=== PATIENT | male | born 1965 | race American Indian/Alaskan Native ===

== ENCOUNTER 2017-03-02 02:56 | Observation (INO) | payer OTHER ==
[2017-03-02 02:56] VITALS: BMI 26.9
[2017-03-02] MEDS ORDERED: Labetalol 25mg/5ml Syringe IVP STA (03:22)
--- NOTE | 2017-03-02 03:29 | C.PDOC ---
History Of Present Illness 52 year old male presents to the ED for evaluation of new onset of chest pain which began at around 0100 today. Patient describes symptoms as nonexertional and midsternal. Patient states symptoms have now improved but are persistent. Patient also reports shortness of breath. Denies any other associated symptoms. Patient reports he has been noncompliant with his blood pressure medications since 09/2016 stating, " I ran out." NEW ONSET CP SINCE 0100. NONEXERTIONAL MIDSTERNAL NOW IMPROVED BUT PERSISTENT. + SOB. NO OTHER ASSOC SX. NONCOMPLIANT W BP MEDS SINCE 09/2016 "I RAN OUT" EXAM NEG Time Seen by Provider: 03/02/17 03:17 Chief Complaint (Nursing): Chest Pain History Per: Patient History/Exam Limitations: no limitations Onset/Duration Of Symptoms: Hrs, Sudden Onset, Persistent Current Symptoms Are (Timing): Better Quality: "Pain" Additional History Per: Patient Past Medical History Reviewed: Historical Data, Nursing Documentation, Vital Signs Vital Signs: Last Vital Signs Temp 97.8 F 03/02/17 03:08 Pulse 72 03/02/17 04:43 Resp 16 03/02/17 04:43 BP 146/85 03/02/17 04:43 Pulse Ox 95 03/02/17 05:02 - Medical History PMH: Arthritis, HTN, Osteoporosis Surgical History: No Surg Hx Family History: States: Unknown Family Hx - Social History Hx Tobacco Use: No Hx Alcohol Use: Yes Hx Substance Use: No - Immunization History Hx Tetanus Toxoid Vaccination: No Hx Influenza Vaccination: No Hx Pneumococcal Vaccination: No Review Of Systems Cardiovascular: Positive for: Chest Pain (midsternal ) Respiratory: Positive for: Shortness of Breath Physical Exam - Physical Exam Appears: Non-toxic, No Acute Distress Skin: Normal Color, Warm, Dry Head: Atraumatic, Normacephalic Eye(s): bilateral: Normal Inspection Oral Mucosa: Moist Neck: Supple Chest: Symmetrical, No Deformity, No Tenderness Cardiovascular: Rhythm Regular, No Murmur Respiratory: Normal Breath Sounds, No Rales, No Rhonchi, No Wheezing Extremity: Normal ROM, Capillary Refill (less than 2 seconds ) Neurological/Psych: Oriented x3, Normal Speech, Normal Cognition Gait: Steady ED Course And Treatment - Laboratory Results Result Diagrams: 03/02/17 03:37 03/02/17 03:37 ECG: Interpreted By Me ECG Rhythm: Sinus Rhythm ECG Interpretation: Normal Rate From EC O2 Sat by Pulse Oximetry: 95 (on RA) Pulse Ox Interpretation: Normal Progress Note: Labs, EKG, CXR ordered and reviewed. Aspirin PO, Nitroglycerin SL , Trandate IVP, and Tylenol PO administered. Progress - Re-Evaluation Re-evaluation Note: 03/02/17 04:59 CP RESOLVED. SBP 145 PENDING CALLBACK MED SEWER TAPPER 03/02/17 05:20 D/W DR BARAHONA MED SEWER TAPPER WILL ADMIT - Data Reviewed Data Reviewed: Lab, Diagnostic imaging, EKG, Old records - Continuity of Care Discussed patient case with:: On-call PMD-pt unassigned Disposition Counseled Patient/Family Regarding: Studies Performed, Diagnosis - Disposition Disposition: HOSPITALIZED Disposition Time: 05:01 Condition: STABLE Forms: [facility] (Lebanese) - POA Present On Arrival: None - Clinical Impression Clinical Impression: Chest pain, Uncontrolled hypertension - Scribe Statement The provider has reviewed the documentation as recorded by the Scribe (Pat Burroughs) Provider Attestation: All medical record entries made by the Scribe were at my direction and personally dictated by me. I have reviewed the chart and agree that the record accurately reflects my personal performance of the history, physical exam, medical decision making, and the department course for this patient. I have also personally directed, reviewed, and agree with the discharge instructions and disposition. Decision To Admit - Pt Status Changed To: Hospital Disposition Of: Observation - . Bed Request Type: Telemetry Admitting Physician: Juan Pablo Clements Patient Diagnosis: Chest pain, Uncontrolled hypertension
[2017-03-02 03:42] LABS: BASO % 0.3 % (0.0-2.0); EOS # 0.5 K/uL (0.0-0.7); EOS % 6.1 % (0.0-4.0); HEMATOCRIT 45.4 % (35.0-51.0); LYMPH # 1.7 K/uL (1.0-4.3); MEAN CELL VOLUME 78.9 fL (80.0-94.0); MEAN CORPUSCULAR HEMOGLOBIN 26.5 pg (27.0-31.0); MEAN CORPUSCULAR HGB CONC 33.5 g/dL (33.0-37.0); MEAN PLATELET VOLUME 8.5 fL (7.2-11.7); MONO # 0.9 K/uL (0.0-0.8); MONO % 10.2 % (0.0-10.0); RED CELL DISTRIBUTION WIDTH 15.5 % (11.5-14.5); WHITE BLOOD COUNT 8.8 K/uL (4.8-10.8)
[2017-03-02 03:47] LABS: CHLORIDE 102 mmol/L (98-107); POTASSIUM 3.9 mmol/L (3.6-5.2); SODIUM 137 mmol/L (132-148)
[2017-03-02 03:50] LABS: CARBON DIOXIDE 24 mmol/L (22-30); GFR AFRICAN-AMERICAN 60
[2017-03-02 03:51] LABS: BLOOD UREA NITROGEN 25 mg/dL (9-20); CALCIUM 9.1 mg/dl (8.6-10.4); GLUCOSE,RANDOM 103 mg/dL (75-110)
[2017-03-02] MEDS ORDERED: Labetalol 25mg/5ml Syringe ONE (04:03)
--- NOTE | 2017-03-02 08:02 | RAD ---
PROCEDURE: CHEST RADIOGRAPH, 1 VIEW HISTORY: chest pain COMPARISON: None available. FINDINGS: LUNGS: Mild venous congestion. Right hilar prominence. Mild patchy increased markings at the lung bases. PLEURA: No pneumothorax or pleural fluid seen. CARDIOVASCULAR: Normal. OSSEOUS STRUCTURES: No significant abnormalities. VISUALIZED UPPER ABDOMEN: Normal. OTHER FINDINGS: None. IMPRESSION: Mild venous congestion. Right hilar prominence. Mild patchy increased markings at the lung bases.
[2017-03-02] MEDS: Metoprolol Succinate 25 mg XL Tab PO SCH (10:05)
[2017-03-02] MEDS: Enoxaparin 40 mg Syringe SC SCH (10:05)
[2017-03-02 11:04] LABS: RBC URINE 1 /hpf (0-3); URINE BILIRUBIN NEGATIVE (NEGATIVE); URINE BLOOD NEGATIVE (NEGATIVE); URINE COLOR Straw (YELLOW); URINE GLUCOSE (UA) NORMAL (Normal); URINE KETONE NEGATIVE (NEGATIVE); URINE LEUKOCYTE ESTERASE NEG Leu/uL (Negative); URINE PROTEIN NEGATIVE (NEGATIVE); URINE UROBILINOGEN NORMAL mg/dL (0.2-1.0); WBC URINE 1 /hpf (0-5)
[2017-03-02 11:42] LABS: CHOLESTEROL 176 mg/dL (0-199)
--- NOTE | 2017-03-02 11:56 | CP.PCM.PN ---
Subjective - Date & Time of Evaluation Date of Evaluation: 03/02/17 Time of Evaluation: 11:30 - Subjective Subjective: H&P dictated #[id number] Objective - Vital Signs/Intake and Output Vital Signs (last 24 hours): Temp Pulse Resp BP Pulse Ox 97.9 F 61 20 134/78 97 03/02/17 07:00 03/02/17 07:00 03/02/17 07:00 03/02/17 10:05 03/02/17 07:00 - Medications Medications: Current Medications Aspirin (Aspirin) 325 mg PO DAILY [facility] Last Admin: 03/02/17 10:04 Dose: Not Given Enalapril Maleate (Vasotec) 10 mg PO DAILY [facility] Last Admin: 03/02/17 10:05 Dose: 10 mg Enoxaparin Sodium (Lovenox) 40 mg SC DAILY [facility] Last Admin: 03/02/17 10:05 Dose: 40 mg Hydrochlorothiazide (Hydrodiuril) 25 mg PO DAILY [facility] Last Admin: 03/02/17 10:04 Dose: 25 mg Metoprolol Succinate (Toprol Xl) 25 mg PO DAILY [facility] Last Admin: 03/02/17 10:05 Dose: 25 mg Nitroglycerin (Nitrostat Sl Tab) 0.4 mg SL Q5M PRN PRN Reason: CHEST PAIN Last Admin: 03/02/17 03:45 Dose: 0.4 mg Pneumococcal Polyvalent Vaccine (Pneumovax 23 Vaccine) 0.5 ml IM .ONCE ONE Stop: 03/04/17 10:01 - Labs Labs: 03/02/17 03:37 03/02/17 03:37
[2017-03-02 12:12] LABS: THYROID STIMULATING HORMONE 7.77 mIU/L (0.46-4.68)
--- NOTE | 2017-03-02 19:11 | HP ---
CHIEF COMPLAINT: Chest pain started at 1:30 a.m. HISTORY OF PRESENT ILLNESS: The patient is a 52-year-old male with past medical of hypertension, osteoarthritis, gout, noncompliance with his medications, ran out of his medication in 09/2016 and not taking any pill since then, has been following up with Dr. Campos, came into the ED with complaints of sudden onset of chest pain at 1:30 a.m. while he was resting. As per the patient, chest pain is in the retrosternal areas, pressure like pain, non-radiating, not associated with nausea or vomiting, felt slightly dizzy. Denies any diaphoresis. The pain was present until he came into the emergency room and felt better after he got the medication in the emergency room. He claims that it may have lasted for about 2 hours. When I examined he is feeling much better. Denies any headache or dizziness. Denies any chest pain, shortness of breath or wheezing. Denies any nausea, vomiting, abdominal pain, diarrhea or constipation. Denies any urinary complaints. Denies any leg pains or leg cramps. Denies any other neurologic symptoms. All other systems reviewed and was found to be negative. PAST MEDICAL HISTORY: As described, hypertension, osteoarthritis, and gout. PAST SURGICAL HISTORY: Denies any past surgical history. FAMILY HISTORY: Hypertension in the mother. PERSONAL HISTORY: He is , having 3 children, living with his , working as a local company hazmat driver. SOCIAL HISTORY: Denies smoking or drugs. Drinks alcohol socially. ALLERGIES: NO KNOWN DRUG ALLERGIES. HOME MEDICATIONS: Include enalapril and hydrochlorothiazide 10/25 daily, tramadol as needed, naproxen 500 mg p.o. b.i.d. REVIEW OF SYSTEMS: As described in history of present illness. All other systems reviewed and was found to be negative. PHYSICAL EXAMINATION: GENERAL: Middle-aged male, lying in bed, in no acute distress. VITAL SIGNS: Blood pressure 134/86, pulse 62, respirations 20, temperature 97.7 degrees Fahrenheit, O2 saturation 97% on room air. HEENT: Pupils equal round, reacting to light and accommodation. Extraocular muscles intact. No icterus, no pallor, no oral thrush, no pharyngeal congestion, no nasal congestion. NECK: Supple. No JVD. No thyromegaly. CHEST: Moving equally bilaterally on respirations. LUNGS: Bilateral vesicular breath sounds. No wheezing. No rhonchi. CARDIOVASCULAR: S1 and S2 present, regular. ABDOMEN: Soft and nontender. Bowel sounds present. No guarding. No rigidity. No rebound tenderness noted. CENTRAL NERVOUS SYSTEM: Alert, awake, oriented x3. No focal deficits noted. EXTREMITIES: No edema. Palpable peripheral pulses. LABORATORY DATA: Done from ED, WBC 8.8, hemoglobin 15.2, hematocrit 45.4, platelets 217. Sodium 137, potassium 3.9, chloride 102, bicarbonate 24, BUN 25, creatinine 1.5, glucose 103, calcium 9.1, cardiac enzymes x2 negative, triglycerides 248, cholesterol 176, LDL 122, HDL 31, TSH 7.77. UA negative, urine drug screen negative. Chest x-ray negative for any infiltrate. EKG shows normal sinus rhythm at 81 beats per minute, poor R-wave progression. ASSESSMENT: Middle-aged male with history of hypertension, arthritis, gout, noncompliant with his medication, came in with elevated blood pressure of 173/108 and retrosternal chest pain. The patient is being admitted for further evaluation. 1. Chest pain in a patient with multiple risk factors, rule out acute coronary syndrome, rule out coronary artery disease. 2. Uncontrolled hypertension. 3. Noncompliance. 4. Hypertriglyceridemia. 5. History of gout. 6. History of arthritis. PLAN: The patient is being admitted to telemetry. We will do serial cardiac enzymes, serial EKG. We will check echocardiogram. We will obtain cardiology evaluation. Gave aspirin 81 mg daily, metoprolol 25 mg p.o. daily. Continue with enalapril 10 mg p.o. daily, hydrochlorothiazide 25 mg daily, and nitroglycerine as needed for chest pain. We will add Lovaza. We will add further recommendation as his clinical course progresses. Juan Pablo Clements MD
--- NOTE | 2017-03-02 20:32 | CON ---
DATE: 03/03/2017 REQUESTING PHYSICIAN: Genny Clements MD HISTORY OF PRESENT ILLNESS: A 52-year-old gentleman with no fevers, history of hypertension, diabetes, asthma, angina, documented IA, was brought in with history of chest pain which was epigastric in nature. The pain occurred at rest. He works driving trucks and walks around, climb flight of stairs without any discomfort. No history of CHF in the past. Never been admitted in the past for cardiac problems. PERSONAL HISTORY: Does not smoke, does not drink. ALLERGIES: DENIED. FAMILY HISTORY: Negative for premature coronary artery disease. REVIEW OF SYSTEMS: No history of TIA, CVA, visual disturbances, exertional chest pain. No orthopnea, PND, or ankle edema. No syncope. No TIAs. No seizures. PAST MEDICAL HISTORY: History of hernia surgery. PHYSICAL EXAMINATION: GENERAL: Shows middle aged male in no distress. VITAL SIGNS: He is 5 feet 10 inches, and weights 205 pounds, his blood pressure 146/80, heart rate of 70, respiratory rate of 12, afebrile. HEENT: Head is normocephalic. EYES: No pallor, no icterus. NECK: Supple. LUNGS: Clear. CARDIAC EXAM: Showed normal S1 and S2. No definite gallops or murmurs. ABDOMEN: Soft. EXTREMITIES: Unremarkable. LABORATORY DATA: EKG sinus rhythm. Troponin were negative. ASSESSMENT: This is a 52-year-old gentleman with history of chest pain, appears noncardiac in nature. RECOMMENDATIONS: To obtain the lipid profile, thyroid profile, and echocardiogram. Recommend regular stress test as an outpatient if all troponins are negative. No specific treatment for cardiac-amaral is recommended at this point. I thank you kindly and we will follow at your request only. Regular stress test can be done as an outpatient. Oliverio Melo MD
[2017-03-02] MEDS: Omega-3-Acid Ethyl Esters 1 GM Cap PO SCH (20:39)
[2017-03-02] MEDS: Sodium Chloride 0.45% 1,000 ML IV SCH (21:12)
[2017-03-03 06:54] LABS: BASO % 0.4 % (0.0-2.0); EOS # 0.3 K/uL (0.0-0.7); EOS % 2.8 % (0.0-4.0); HEMATOCRIT 49.1 % (35.0-51.0); LYMPH # 1.3 K/uL (1.0-4.3); LYMPH % 13.7 % (20.0-40.0); MEAN CELL VOLUME 79.3 fL (80.0-94.0); MEAN CORPUSCULAR HEMOGLOBIN 26.2 pg (27.0-31.0); MEAN CORPUSCULAR HGB CONC 33.1 g/dL (33.0-37.0); MEAN PLATELET VOLUME 8.5 fL (7.2-11.7); MONO % 10.8 % (0.0-10.0); NRBC % 0.1 % (0.0-2.0); RED CELL DISTRIBUTION WIDTH 15.8 % (11.5-14.5); WHITE BLOOD COUNT 9.2 K/uL (4.8-10.8)
[2017-03-03 07:43] LABS: CHLORIDE 101 mmol/L (98-107); POTASSIUM 4.2 mmol/L (3.6-5.2); SODIUM 138 mmol/L (132-148)
[2017-03-03 07:45] LABS: AST/SGOT 29 U/L (17-59); CARBON DIOXIDE 25 mmol/L (22-30); GFR AFRICAN-AMERICAN > 60
[2017-03-03 07:46] LABS: ALB/GLOB RATIO 0.9 (1.0-2.1); ALKALINE PHOSPHATASE 57 U/L (38-126); ALT/SGPT 26 U/L (21-72); BLOOD UREA NITROGEN 25 mg/dL (9-20); CALCIUM 9.6 mg/dl (8.6-10.4); GLUCOSE,RANDOM 105 mg/dL (75-110); TOTAL PROTEIN 9.4 g/dL (6.3-8.3)
[2017-03-03 08:03] VITALS: O2SAT 97
--- NOTE | 2017-03-03 09:05 | CP.PCM.PN ---
Subjective - Date & Time of Evaluation Date of Evaluation: 03/03/17 Time of Evaluation: 08:45 - Subjective Subjective: Discharge summary dictated #[id number] Objective - Vital Signs/Intake and Output Vital Signs (last 24 hours): Temp Pulse Resp BP Pulse Ox 98 F 78 18 107/69 97 03/03/17 07:05 03/03/17 07:30 03/03/17 07:05 03/03/17 07:05 03/03/17 07:05 Intake and Output: 03/03/17 03/03/17 06:59 18:59 Intake Total 1600 Output Total 1400 Balance 200 - Medications Medications: Current Medications Aspirin (Aspirin) 325 mg PO DAILY [facility] Last Admin: 03/02/17 10:04 Dose: Not Given Enalapril Maleate (Vasotec) 10 mg PO DAILY [facility] Last Admin: 03/02/17 10:05 Dose: 10 mg Enoxaparin Sodium (Lovenox) 40 mg SC DAILY [facility] Last Admin: 03/02/17 10:05 Dose: 40 mg Hydrochlorothiazide (Hydrodiuril) 25 mg PO DAILY [facility] Last Admin: 03/02/17 10:04 Dose: 25 mg Sodium Chloride (Sodium Chloride 0.45%) 1,000 mls @ 60 mls/hr IV .[id number] [facility] Last Admin: 03/02/17 21:12 Dose: 60 mls/hr Ibuprofen (Motrin Tab) 400 mg PO Q8H PRN PRN Reason: Pain, severe (8-10) Last Admin: 03/03/17 08:00 Dose: 400 mg Metoprolol Succinate (Toprol Xl) 25 mg PO DAILY [facility] Last Admin: 03/02/17 10:05 Dose: 25 mg Nitroglycerin (Nitrostat Sl Tab) 0.4 mg SL Q5M PRN PRN Reason: CHEST PAIN Last Admin: 03/02/17 03:45 Dose: 0.4 mg Sydec-2-Memw Ethyl Esters (Lovaza) 1 gm PO BID [facility] Last Admin: 03/02/17 20:39 Dose: 1 gm Pneumococcal Polyvalent Vaccine (Pneumovax 23 Vaccine) 0.5 ml IM .ONCE ONE Stop: 03/04/17 10:01 - Labs Labs: 03/03/17 06:44 03/03/17 06:44
[2017-03-03] MEDS: Metoprolol Succinate 25 mg XL Tab PO SCH (09:09)
[2017-03-03] MEDS: Enoxaparin 40 mg Syringe SC SCH (09:12)
[2017-03-03] MEDS: Omega-3-Acid Ethyl Esters 1 GM Cap PO SCH (09:36)
[2017-03-03] MEDS: Sodium Chloride 0.45% 1,000 ML IV SCH (13:43)
--- NOTE | 2017-03-03 14:14 | CARD ---
APPROVED REPORT EKG Measurement Heart [id number] <Conclusion> Normal sinus rhythm Inferior infarct, age undetermined Abnormal ECG
[2017-03-03 16:25] VITALS: BP 135/92; PULSE 76; RESP 20; TEMP 98.5
[2017-03-03] MEDS ORDERED: Pneumococcal 23-Valent Vaccine IM ONE (16:34)
--- NOTE | 2017-03-03 21:03 | CARD ---
APPROVED REPORT EXAM: Two-dimensional and M-mode echocardiogram with Doppler and color Doppler. Other Information Quality : GoodRhythm : NSR INDICATION Chest Pain SOB RISK FACTORS Hypertension M-Mode DIMENSIONS RVDd2.85 (2.1-3.2cm)Left Atrium (MM)4.10 (2.5-4.0cm) IVSd0.97 (0.7-1.1cm)Aortic Root3.71 (2.2-3.7cm) LVDd5.66 (4.0-5.6cm)Aortic Cusp Exc.1.95 (1.5-2.0cm) PWd1.04 (0.7-1.1cm)FS (%) 30 % LVDs3.96 (2.0-3.8cm)LVEF (%)57 (>50%) Mitral Valve MV E Asjvgpez20.2cm/sMV A Ylcwmujq50.7cm/sE/A ratio1.1 TDI E/Lateral E'0.0E/Medial E'0.0 Tricuspid Valve TR Peak Zrsyphmj038fz/sTR Peak Gr.[id number] LEFT VENTRICLE The left ventricle is normal size. There is normal left ventricular wall thickness. The left ventricular function is normal. The left ventricular ejection fraction is within the normal range. No regional wall motion abnormalities noted. The left ventricular diastolic function is normal. No left ventricle thrombus noted on this study. There is no ventricular septal defect visualized. There is no left ventricular aneurysm. There is no mass noted in the left ventricle. RIGHT VENTRICLE The right ventricle is normal size. There is normal right ventricular wall thickness. The right ventricular systolic function is normal. ATRIA The left atrium size is normal. The right atrium size is normal. The interatrial septum is intact with no evidence for an atrial septal defect. AORTIC VALVE The aortic valve is normal in structure and function. No aortic regurgitation is present. There is no aortic valvular stenosis. There is no aortic valvular vegetation. MITRAL VALVE The mitral valve is normal in structure and function. There is no evidence of mitral valve prolapse. There is no mitral valve stenosis. There is no mitral valve regurgitation noted. TRICUSPID VALVE The tricuspid valve is normal in structure and function. There is no tricuspid valve regurgitation noted. There is no tricuspid valve prolapse or vegetation. There is no tricuspid valve stenosis. PULMONIC VALVE The pulmonary valve is normal in structure and function. There is no pulmonic valvular regurgitation. There is no pulmonic valvular stenosis. GREAT VESSELS The aortic root is normal in size. The ascending aorta is normal in size. The pulmonary artery is normal. The IVC is normal in size and collapses >50% with inspiration. PERICARDIAL EFFUSION The pericardium appears normal. There is no pleural effusion. <Conclusion> The left ventricular function is normal. The left ventricular ejection fraction is within the normal range. No regional wall motion abnormalities noted.
[2017-03-04] MEDS ORDERED: Pneumococcal 23-Valent Vaccine IM ONE (10:00)
--- NOTE | 2017-03-05 10:17 | DS ---
DISCHARGE DIAGNOSES: Chest pain; acute coronary syndrome, ruled out by negative cardiac enzymes and negative EKGs; uncontrolled hypertension; osteoarthritis and history of gout. HISTORY OF PRESENT ILLNESS: The patient is a 52-year-old male with past medical history of hypertension, osteoarthritis, gout, noncompliance with his blood pressure medications, admitted for retrosternal chest pain at 1 a.m. while he was at rest. The patient is being admitted for further evaluation of his chest pain. Today, the patient is feeling much better. Denies any headache, dizziness. Denies any chest pain, shortness of breath, or wheezing. Denies any nausea, vomiting, abdominal pain, diarrhea, or constipation. Denies any urinary complaints. Denies any leg pain or leg cramps. Denies any other neurologic symptoms. All other symptoms reviewed and were found to be negative. PHYSICAL EXAMINATION: GENERAL: Middle-aged male, lying in bed, in no acute distress. VITAL SIGNS: Blood pressure 135/92, pulse 76, respirations 20, temperature 98.5 degrees Fahrenheit, O2 sats 100% on room air. HEENT: Pupils are equal, round, and reacting to light and accommodation. Extraocular muscles intact. No icterus. No pallor. No oral thrush. No pharyngeal congestion. No nasal congestion. NECK: Supple. No JVD. No thyromegaly. CHEST: Moving equally bilaterally on respirations. LUNGS: Bilateral vesicular breath sounds. No wheezing. No rhonchi. CARDIOVASCULAR: S1 and S2 present, regular. ABDOMEN: Soft and nontender. Bowel sounds present. No guarding. No rigidity. No rebound tenderness noted. CENTRAL NERVOUS SYSTEM: Alert, awake, and oriented x3. No focal deficits noted. EXTREMITIES: No edema. Palpable peripheral pulses. LABORATORY DATA: Labs from this morning; WBC 9.2, hemoglobin 16.2, hematocrit 49.1, platelets 249. Sodium 138, potassium 4.2, chloride 101, bicarb 25, BUN 25, creatinine 1.4, glucose 105, calcium 9.6. LFTs within normal limits. Cardiac enzymes x3 negative. Triglycerides 248, cholesterol 176, LDL 122, HDL, 31. TSH 7.77. UA negative. Drug screen negative. Chest x-ray, negative. EKG, normal sinus rhythm. No acute ST-T changes noted. HOSPITAL COURSE: The patient was admitted to the hospital for chest pain, rule out [place]. The patient had serial troponins, serial EKGs done which were negative. The patient remained chest pain-free. The patient is started on blood pressure medication, with which his blood pressure is controlled. The patient was evaluated by cardiology. His echo was done, preliminary report was okay as per cardiology and the patient is being cleared for further cardiac workup as outpatient for possible outpatient stress test. The patient is otherwise hemodynamically stable and remains chest pain-free. The patient is being discharged. Advised the patient to follow up with cardiology as outpatient for outpatient stress test. CONDITION UPON DISCHARGE: The patient is alert, awake, and oriented x3 and hemodynamically stable. DISCHARGE DIET: Heart-healthy, low-sodium, low-cholesterol diet. ACTIVITY: As tolerated. DISCHARGE MEDICATIONS: Enalapril 10 mg p.o. daily, metoprolol 25 mg p.o. daily, aspirin 81 mg daily, Lovaza 1 g p.o. b.i.d. Juan Pablo Clements MD
== END 2017-03-03 17:00 | disposition home or self-care (01) ==
LOC: C.ER 02:56 → C.6T 05:21
PROVIDERS: ADMIT Internal Medicine; ATTEND Internal Medicine
DX: R07.89 Other chest pain (principal); E78.1 Pure hyperglyceridemia; I10 Essential (primary) hypertension; M10.9 Gout, unspecified; Z91.14 Patient's other noncompliance with medication regimen; Z91.19 Patient's noncompliance with other medical treatment and regimen
CPT/HCPCS: 36415; 71010; 80048; 80053; 80061; 80324; 80345; 80346; 80349; 80353; 80358; 80361; 81001; 83992; 84443; 84484; 85025; 93005; 93306; 96374; 99285; G0378; J1650; J7030

== ENCOUNTER 2017-04-09 01:50 | Emergency (ER) | payer OTHER ==
[2017-04-09 01:51] VITALS: BMI 26.9
[2017-04-09] MEDS ORDERED: Albuterol 0.083% Inhal Sol (2.5 mg/3 mL) UD IH STA (02:20)
[2017-04-09] MEDS ORDERED: Albuterol 0.083% Inhal Sol (2.5 mg/3 mL) UD ONE (02:27)
--- NOTE | 2017-04-09 02:38 | C.PDOC ---
History Of Present Illness 52 year old male presents to the ER with a complaint of SOB, associated with a cough for the past 2 days and pain on deep inspiration. Denies fever or chills. Chief Complaint (Nursing): Shortness Of Breath History Per: Patient History/Exam Limitations: no limitations Onset/Duration Of Symptoms: Days Current Symptoms Are (Timing): Still Present Initiating Event: Other (Not known) Exacerbating Factor(s): Coughing Associated Symptoms: denies: Fever, Chills Past Medical History Reviewed: Historical Data, Nursing Documentation, Vital Signs Vital Signs: Last Vital Signs Temp 97.8 F 04/09/17 02:00 Pulse 65 04/09/17 02:00 Resp 18 04/09/17 02:41 BP 156/98 H 04/09/17 02:00 Pulse Ox 97 04/09/17 03:19 - Medical History PMH: Arthritis (knees), HTN, Osteoporosis Surgical History: No Surg Hx Family History: States: Unknown Family Hx - Social History Hx Tobacco Use: No Hx Alcohol Use: Yes Hx Substance Use: No - Immunization History Hx Tetanus Toxoid Vaccination: No Hx Influenza Vaccination: No Hx Pneumococcal Vaccination: No Review Of Systems Constitutional: Negative for: Fever, Chills Respiratory: Positive for: Cough, Shortness of Breath Physical Exam - Physical Exam Appears: Non-toxic, No Acute Distress Skin: Normal Color, Warm, Dry Head: Atraumatic, Normacephalic Eye(s): bilateral: Normal Inspection Oral Mucosa: Moist Neck: Normal, Supple Chest: Symmetrical Cardiovascular: Rhythm Regular, No Murmur Respiratory: No Accessory Muscle Use, Wheezing (Occasional expiratory wheezes and rhonchi) Gastrointestinal/Abdominal: Soft, No Tenderness Neurological/Psych: Oriented x3, Normal Speech, Other (No focal deficits) ED Course And Treatment - Laboratory Results Result Diagrams: 04/09/17 02:43 04/09/17 02:43 O2 Sat by Pulse Oximetry: 97 (Room air) Pulse Ox Interpretation: Normal - Radiology CXR: Interpreted by Me, Viewed By Me CXR Interpretation: Yes: No Acute Disease, Other (normal chest film). No: Infiltrates Progress Note: EKG, blood work, CXR ordered. Duoneb administered. On reevaluation, patient feels better after treatment, awaiting results of blood work. Disposition Counseled Patient/Family Regarding: Diagnosis - Disposition Referrals: Tylor Beach MD [Primary Care Provider] - Disposition: HOME/ ROUTINE Disposition Time: 03:20 Condition: IMPROVED Prescriptions: Albuterol Sulfate [Proventil Hfa] 0.09 mg IH Q4 #1 spray Azithromycin 1 tab PO DAILY #4 tab Instructions: Acute Bronchitis (ED), How to Use a Nebulizer (ED) Forms: [facility] (Hungarian) - POA Present On Arrival: None - Clinical Impression Clinical Impression: Bronchitis - Scribe Statement The provider has reviewed the documentation as recorded by the Scribe Yosef Avila All medical record entries made by the Scribe were at my direction and personally dictated by me. I have reviewed the chart and agree that the record accurately reflects my personal performance of the history, physical exam, medical decision making, and the department course for this patient. I have also personally directed, reviewed, and agree with the discharge instructions and disposition.
[2017-04-09 02:51] LABS: BASO # 0.1 K/uL (0.0-0.2); BASO % 0.6 % (0.0-2.0); EOS # 1.1 K/uL (0.0-0.7); EOS % 12.1 % (0.0-4.0); HEMATOCRIT 41.5 % (35.0-51.0); LYMPH # 1.6 K/uL (1.0-4.3); LYMPH % 18.1 % (20.0-40.0); MEAN CELL VOLUME 79.5 fL (80.0-94.0); MEAN CORPUSCULAR HEMOGLOBIN 26.5 pg (27.0-31.0); MEAN CORPUSCULAR HGB CONC 33.4 g/dL (33.0-37.0); MEAN PLATELET VOLUME 8.5 fL (7.2-11.7); MONO # 1.1 K/uL (0.0-0.8); MONO % 12.7 % (0.0-10.0); WHITE BLOOD COUNT 8.8 K/uL (4.8-10.8)
[2017-04-09 03:08] LABS: ALKALINE PHOSPHATASE 70 U/L (38-126); ALT/SGPT 22 U/L (21-72); AST/SGOT 35 U/L (17-59); BILIRUBIN,TOTAL 0.8 mg/dL (0.2-1.3); BLOOD UREA NITROGEN 19 mg/dL (9-20); CALCIUM 8.7 mg/dl (8.6-10.4); CARBON DIOXIDE 26 mmol/L (22-30); CHLORIDE 101 mmol/L (98-107); GFR AFRICAN-AMERICAN > 60; GLUCOSE,RANDOM 101 mg/dL (75-110); POTASSIUM 4.3 mmol/L (3.6-5.2); SODIUM 137 mmol/L (132-148); TOTAL PROTEIN 7.9 g/dL (6.3-8.3)
[2017-04-09 03:45] VITALS: BP 133/90; PULSE 62; RESP 16; TEMP 97.7; O2SAT 100
--- NOTE | 2017-04-09 09:36 | RAD ---
HISTORY: sob, COMPARISON: Portable chest 03/02/2017 TECHNIQUE: Chest PA and lateral FINDINGS: LUNGS: No active pulmonary disease. PLEURA: No significant pleural effusion identified. No pneumothorax apparent. CARDIOVASCULAR: Upper limits normal cardiac silhouette appears stable. No pulmonary vascular derangement. OSSEOUS STRUCTURES: No significant abnormalities. VISUALIZED UPPER ABDOMEN: Normal. OTHER FINDINGS: None. IMPRESSION: No interval acute cardiopulmonary disease appreciated.
== END 2017-04-09 03:45 | disposition home or self-care (01) ==
LOC: C.ER 01:50 → SUPCPDRO 01:50 → C.ER 03:45
DX: J40 Bronchitis, not specified as acute or chronic (principal)

== ENCOUNTER 2017-05-01 05:23 | Emergency (ER) | payer OTHER ==
[2017-05-01 05:23] VITALS: BMI 26.9
--- NOTE | 2017-05-01 05:35 | C.PDOC ---
History Of Present Illness Patient is a 52 y/o male who presents to the ED with complaint of chest tightness and trouble swallowing upon waking up this morning. Patient noted feeling slightly SOB, but symptom has subsided currently. Denies any CP at present time. No other physical complaints at this time. Time Seen by Provider: 05/01/17 05:35 History Per: Patient History/Exam Limitations: no limitations Onset/Duration Of Symptoms: Hrs (upon awakening) Current Symptoms Are (Timing): Gone Initiating Event: Other (waking up) Quality: Tightness Severity: Moderate Pain Scale Rating Of: 5 Associated Symptoms: denies: Fever, Chills, Heart Racing, Leg/Calf Pain Reports Recently: Seen In ED, Treated By A Physician Recent travel outside of the [place]: No Additional History Per: Patient Past Medical History Reviewed: Historical Data, Nursing Documentation, Vital Signs Vital Signs: Last Vital Signs Temp 97.4 F L 05/01/17 05:37 Pulse 63 05/01/17 05:37 Resp 16 05/01/17 05:37 BP 132/90 05/01/17 05:37 Pulse Ox 96 05/01/17 05:37 - Medical History PMH: Arthritis (knees), HTN, Osteoporosis Surgical History: No Surg Hx Family History: States: No Known Family Hx - Social History Hx Tobacco Use: No Hx Alcohol Use: Yes Hx Substance Use: No - Immunization History Hx Tetanus Toxoid Vaccination: No Hx Influenza Vaccination: No Hx Pneumococcal Vaccination: No Review Of Systems Constitutional: Negative for: Fever, Chills Eyes: Negative for: Vision Change ENT: Positive for: Throat Pain Cardiovascular: Positive for: Chest Pain ("tightness"; resolved at present time) Respiratory: Positive for: Shortness of Breath (resolved upon arrival), Other ( trouble swallowing) Gastrointestinal: Negative for: Nausea, Vomiting Genitourinary: Negative for: Dysuria Musculoskeletal: Negative for: Back Pain Skin: Negative for: Rash Neurological: Negative for: Weakness Psych: Negative for: Anxiety Physical Exam - Physical Exam Appears: Well, Non-toxic, No Acute Distress, Other (AA&Ox3) Skin: Warm, Dry Head: Normacephalic Eye(s): bilateral: Normal Inspection Oral Mucosa: Moist Tongue: Normal Appearing, No Swelling Lips: Other (moist) Throat: No Erythema, Other (oropharynx clear) Neck: Trachea Midline (within normal limits), Supple Chest: Symmetrical Cardiovascular: Rhythm Regular, No Murmur Respiratory: No Rales, No Rhonchi, Wheezing (scattered), Other (speaking in complete sentences) Gastrointestinal/Abdominal: Soft, No Tenderness, No Distention Back: No CVA Tenderness Extremity: Normal ROM Extremity: Bilateral: Atraumatic Pulses: Left Dorsalis Pedis: Normal, Right Dorsalis Pedis: Normal Neurological/Psych: Oriented x3, Normal Speech, Normal Cognition Gait: Steady ED Course And Treatment - Laboratory Results Result Diagrams: 05/01/17 06:11 05/01/17 06:11 ECG: Interpreted By Me, Viewed By Me ECG Rhythm: Sinus Rhythm (61), Nonspecific Changes Rate From EC Pulse Ox Interpretation: Normal - Radiology CXR: Interpreted by Me, Viewed By Me CXR Interpretation: Yes: Infiltrates (rll). No: Fracture, Pnemothorax Progress Note: EKG, CXR, UA, and blood work ordered. Ecotrin and combivent respimat administered. Reevaluation Time: 06:57 Reassessment Condition: Improved Disposition Counseled Patient/Family Regarding: Studies Performed, Diagnosis, Need For Followup - Disposition Referrals: Klarissa Campos MD [Medical Doctor] - Disposition: HOME/ ROUTINE Disposition Time: 05:35 Condition: FAIR Additional Instructions: Please return if symptoms recur Prescriptions: Albuterol HFA [Ventolin HFA 90 mcg/actuation (8 g)] 2 puff IH [id number] #1 puff Azithromycin [Zithromax Tri-Chiki] 500 mg PO DAILY #3 tablet Instructions: Reactive Airways Disease (DC), Acute Bronchitis (ED) - Clinical Impression Clinical Impression: Bronchitis, Reactive airway disease - Scribe Statement The provider has reviewed the documentation as recorded by the Scribe Kristi Fontenot All medical record entries made by the Scribe were at my direction and personally dictated by me. I have reviewed the chart and agree that the record accurately reflects my personal performance of the history, physical exam, medical decision making, and the department course for this patient. I have also personally directed, reviewed, and agree with the discharge instructions and disposition.
[2017-05-01 05:43] VITALS: PULSE 63
[2017-05-01] MEDS ORDERED: Aspirin 325 mg EC Tablets PO STA (05:47)
[2017-05-01] MEDS ORDERED: Albuterol-Ipratrop 3 mg / 0.5 (3 ml) UD ONE (06:03)
[2017-05-01] MEDS ORDERED: Aspirin 325 mg EC Tablets PO ONE (06:03)
[2017-05-01 06:16] LABS: BASO % 0.4 % (0.0-2.0); EOS # 0.5 K/uL (0.0-0.7); EOS % 7.4 % (0.0-4.0); HEMATOCRIT 44.6 % (35.0-51.0); LYMPH % 14.1 % (20.0-40.0); MEAN CELL VOLUME 79.1 fL (80.0-94.0); MEAN CORPUSCULAR HGB CONC 32.9 g/dL (33.0-37.0); MONO # 0.6 K/uL (0.0-0.8); MONO % 8.7 % (0.0-10.0); NRBC % 0.2 % (0.0-2.0); RED CELL DISTRIBUTION WIDTH 15.5 % (11.5-14.5); WHITE BLOOD COUNT 7.1 K/uL (4.8-10.8)
[2017-05-01 06:20] LABS: RBC URINE 209 /hpf (0-3); URINE BILIRUBIN NEGATIVE (NEGATIVE); URINE BLOOD 3+ (NEGATIVE); URINE COLOR Yellow (YELLOW); URINE GLUCOSE (UA) NORMAL (Normal); URINE KETONE NEGATIVE (NEGATIVE); URINE LEUKOCYTE ESTERASE NEG Leu/uL (Negative); URINE PROTEIN NEGATIVE (NEGATIVE); URINE UROBILINOGEN NORMAL mg/dL (0.2-1.0); WBC URINE 1 /hpf (0-5)
[2017-05-01 06:22] LABS: INR 1.1
[2017-05-01 06:43] LABS: ALB/GLOB RATIO 0.9 (1.0-2.1); ALKALINE PHOSPHATASE 55 U/L (38-126); ALT/SGPT 45 U/L (21-72); AST/SGOT 32 U/L (17-59); BILIRUBIN,TOTAL 0.9 mg/dL (0.2-1.3); BLOOD UREA NITROGEN 23 mg/dL (9-20); CALCIUM 8.7 mg/dl (8.6-10.4); CARBON DIOXIDE 25 mmol/L (22-30); CHLORIDE 103 mmol/L (98-107); GFR AFRICAN-AMERICAN > 60; GLUCOSE,RANDOM 86 mg/dL (75-110); POTASSIUM 4.1 mmol/L (3.6-5.2); SODIUM 139 mmol/L (132-148); TOTAL PROTEIN 9.4 g/dL (6.3-8.3)
[2017-05-01 06:53] LABS: ABG ALLEN TEST POS; DRAW SITE RR
[2017-05-01] MEDS: Albuterol-Ipratrop 3 mg / 0.5 (3 ml) UD IH SCH (06:54)
[2017-05-01 07:15] VITALS: BP 126/84; RESP 20; TEMP 98; O2SAT 98
--- NOTE | 2017-05-01 08:00 | RAD ---
PROCEDURE: CHEST RADIOGRAPH, 1 VIEW HISTORY: SOB COMPARISON: 04/09/2017 FINDINGS: LUNGS: Clear. PLEURA: No pneumothorax or pleural fluid seen. CARDIOVASCULAR: Normal. OSSEOUS STRUCTURES: No significant abnormalities. VISUALIZED UPPER ABDOMEN: Normal. OTHER FINDINGS: None. IMPRESSION: No active disease.
--- NOTE | 2017-05-02 23:44 | CARD ---
APPROVED REPORT EKG Measurement Heart [id number] RI 170P-8 [id number] <Conclusion> Normal sinus rhythm Inferior infarct, age undetermined Abnormal ECG
== END 2017-05-01 07:15 | disposition home or self-care (01) ==
LOC: C.ER 05:23
DX: J45.909 Unspecified asthma, uncomplicated (principal); I10 Essential (primary) hypertension; M81.0 Age-related osteoporosis without current pathological fracture

== ENCOUNTER 2017-05-11 21:42 | Emergency (ER) | payer OTHER ==
[2017-05-11 21:42] VITALS: BMI 26.9
[2017-05-11 22:20] VITALS: BP 130/87; PULSE 56; RESP 20; TEMP 97.7; O2SAT 96
--- NOTE | 2017-05-11 22:32 | C.PDOC ---
History Of Present Illness Patient presents to ED with complaints of painful and trouble swallowing for over one month. Patient states it happens occasionally with liquids or solids where he feels discomfort in his throat as food goes down. He states he was seen in ED few weeks ago and given antibiotics. He states he feels the same. Denies any fever, vomiting, choking, or weight loss. Time Seen by Provider: 05/11/17 22:23 Chief Complaint (Nursing): ENT Problem History Per: Patient History/Exam Limitations: no limitations Onset/Duration Of Symptoms: Other (month) Reports Recently: Seen In ED Past Medical History Reviewed: Historical Data, Nursing Documentation, Vital Signs Vital Signs: Last Vital Signs Temp 97.7 F 05/11/17 22:17 Pulse 56 L 05/11/17 22:17 Resp 20 05/11/17 22:42 BP 130/87 05/11/17 22:17 Pulse Ox 96 05/12/17 15:28 - Medical History PMH: Arthritis (knees), HTN, Osteoporosis Family History: States: Unknown Family Hx - Social History Hx Tobacco Use: No Hx Alcohol Use: Yes Hx Substance Use: No - Immunization History Hx Tetanus Toxoid Vaccination: No Hx Influenza Vaccination: No Hx Pneumococcal Vaccination: No Review Of Systems Except As Marked, All Systems Reviewed And Found Negative. ENT: Positive for: Throat Pain, Other (painful swallow) Physical Exam - Physical Exam Appears: Non-toxic, No Acute Distress Skin: Warm, Dry, No Diaphoretic, No Pale, No Rash Head: Atraumatic, Normacephalic Eye(s): bilateral: Normal Inspection, EOMI Ear(s): Bilateral: Normal (no erythema) Nose: Normal Oral Mucosa: Moist Tongue: Normal Appearing, No Swelling, No Lesions Lips: Normal Appearing, No Swelling, No Contusion Teeth: Normal Dentition Gingiva: Normal Appearing, No Erythema, No Bleeding Throat: Normal, No Erythema, No Exudate, No Drooling, No Mass Neck: Normal ROM, Trachea Midline, Other (thyroid without swelling or nodules and nontender) Lymphatic: Normal Exam, No Adenopathy Chest: Symmetrical Cardiovascular: Rhythm Regular, No Murmur Respiratory: Normal Breath Sounds, No Wheezing Extremity: Bilateral: Atraumatic, Normal Color And Temperature, Normal ROM Neurological/Psych: Oriented x3, Normal Speech Gait: Steady ED Course And Treatment O2 Sat by Pulse Oximetry: 96 (room air) Pulse Ox Interpretation: Normal Medical Decision Making Medical Decision Making: Patient with symptoms of dysphagia for over month. Exam was benign and observed to drink water without problem. Patient was recently seen in ED with labs and XRay performed showing infiltrate and treated with Zithromax. Patient given viscous lidocaine and he reports no change in symptoms. Explain to patient he needs to follow up with specialists for further testing. Disposition Counseled Patient/Family Regarding: Diagnosis, Need For Followup, Rx Given - Disposition Referrals: Klarissa Campos MD [Medical Doctor] - Jeffry Gimenez MD [Staff Provider] - Josr Charles MD [Staff Provider] - Disposition: HOME/ ROUTINE Disposition Time: 22:31 Condition: STABLE Additional Instructions: Please follow up with your primary doctor and specialists ENT or GI for further evaluation. Take medications as needed for symptoms. Return to hospital for any worsening symptoms Prescriptions: Benzocaine/Menthol [Cepacol Sore Throat] 1 adal MM Q2 #30 adal Omeprazole 20 mg PO DAILY #30 capsule. Instructions: Dysphagia (ED) Forms: [facility] (Japanese) - POA Present On Arrival: None - Clinical Impression Clinical Impression: Dysphagia
== END 2017-05-11 22:42 | disposition home or self-care (01) ==
LOC: C.ER 21:42
DX: R13.10 Dysphagia, unspecified (principal)

== ENCOUNTER 2018-08-09 12:33 | Outpatient (CLI) | payer MEDICAID | END 2018-08-09 12:34 | disposition home or self-care (01) | LOC: C.CTH 12:33 ==

== ENCOUNTER 2018-09-18 10:46 | Outpatient (CLI) | payer MEDICAID | END 2018-09-18 10:47 | disposition home or self-care (01) | LOC: C.RADIC 10:46 ==